=== PATIENT | female | born 2000 | race Caucasian/White ===

== ENCOUNTER 2019-03-20 14:59 | Emergency (ER) | payer BC ==
[2019-03-20] MEDS ORDERED: Lidocaine 2% VISCOUS* 15 ML UDC PO ONE (16:29)
--- NOTE | 2019-03-20 16:30 | ED ---
Influenza-Like Illness - HPI Summary HPI Summary: Patient complains of sore throat, low-grade fever up to 99.5, body aches, dry cough, nasal congestion 2 weeks. Denies a is SOB, N/V/D, abdominal pain, change, change in BM. Patient went to [facility] now convenient care today, was strep negative. Patient has been on complete Z-Henry and Augmentin 4 doses with no relief. Medical history is none. - History of Current Complaint Chief Complaint: EDFluSymptoms Time Seen by Provider: 03/20/19 16:09 Hx Obtained From: Patient, Family/Valuation Manager Onset/Duration: Gradual Onset, Lasting Weeks Severity: Moderate Associated Signs & Symptoms: Myalgia, Cough, Sore Throat, Nasal Congestion, Headache - Allergy/Home Medications Allergies/Adverse Reactions: Allergies Allergy/AdvReac Type Severity Reaction Status Date / Time No Known Allergies Allergy Verified 03/20/19 16:56 PMH/Surg Hx/FS Hx/Imm Hx Endocrine/Hematology History: Denies: Hx Anticoagulant Therapy Cardiovascular History: Denies: Hx Pacemaker/ICD History: Denies: Hx Dialysis Sensory History: Denies: Hx Legally Blind Opthamlomology History: Denies: Hx Eye Prosthesis EENT History: Denies: Hx Deafness Neurological History: Denies: Hx Dementia Psychiatric History: Denies: Hx Autism Infectious Disease History: No Infectious Disease History: Denies: Traveled Outside the [place] in Last 30 Days - Family History Known Family History: Positive: Non-Contributory - Social History Alcohol Use: Occasionally Hx Substance Use: No Hx Tobacco Use: No Review of Systems Constitutional: Negative Eyes: Negative Positive: Sore Throat, Nasal Discharge Cardiovascular: Negative Positive: Cough Gastrointestinal: Negative Genitourinary: Negative Positive: Myalgia Skin: Negative Positive: Headache Psychological: Normal All Other Systems Reviewed And Are Negative: Yes Physical Exam Triage Information Reviewed: Yes Vital Signs On Initial Exam: Initial Vitals Temp Pulse Resp BP Pulse Ox 99.5 F 125 18 135/97 100 03/20/19 15:13 03/20/19 15:13 03/20/19 15:13 03/20/19 15:13 03/20/19 15:13 Vital Signs Reviewed: Yes Appearance: Positive: Well-Appearing Skin: Positive: Warm Head/Face: Positive: Normal Head/Face Inspection Eyes: Positive: Normal ENT: Positive: Pharyngeal erythema, Nasal congestion, TMs normal, Tonsillar swelling - Mild swelling on the left, Uvula midline. Negative: Nasal drainage, Tonsillar exudate, Trismus, Muffled voice, Hoarse voice Neck: Positive: Supple Respiratory/Lung Sounds: Positive: Clear to Auscultation Cardiovascular: Positive: Normal Abdomen Description: Positive: Nontender Musculoskeletal: Positive: Normal Neurological: Positive: Normal Psychiatric: Positive: Normal AVPU Assessment: Alert - Meg Coma Scale Best Eye Response: 4 - Spontaneous Best Motor Response: 6 - Obeys Commands Best Verbal Response: 5 - Oriented Coma Scale Total: 15 Diagnostics - Vital Signs Vital Signs Temp Pulse Resp BP Pulse Ox 03/20/19 15:13 99.5 F 125 18 135/97 100 - Laboratory Result Diagrams: 03/20/19 16:25 03/20/19 16:25 Lab Statement: Any lab studies that have been ordered have been reviewed, and results considered in the medical decision making process. Flu Symptom Course/Dx - Course Course Of Treatment: Patient complains of sore throat, low-grade fever up to 99.5, body aches, dry cough, nasal congestion 2 weeks. Denies a is SOB, N/V/D , abdominal pain, change, change in BM. Patient went to well now convenient care today, was strep negative. Patient has been on complete Z-Henry and Augmentin 4 doses with no relief. Medical history is none. Vital signs within normal limits. Labs unremarkable. UA cultures pending. [place] negative. Flu negative. Chest x-ray unremarkable. Patient would not tolerate IV, unable to give fluids. Patient did not tolerate viscous lidocaine. Diagnosis viral syndrome. - Diagnoses Provider Diagnoses: Viral syndrome Discharge ED - Sign-Out/Discharge Documenting (check all that apply): Patient Departure Patient Received Moderate/Deep Sedation with Procedure: No - Discharge Plan Condition: Stable Disposition: HOME Patient Education Materials: Viral Syndrome (ED) Forms: *School Release Referrals: No Primary Care Phys,NOPCP [Primary Care Provider] - Additional Instructions: Drink plenty of fluids to maintain hydration. Rest. Alternate ibuprofen 400 mg with Tylenol 650 mg every 3 hours for fever, body aches and sore throat pain , as needed. Return to the ED for any new or worsening symptoms. - Billing Disposition and Condition Condition: STABLE Disposition: Home - Attestation Statements Provider Attestation: I was available for consult. This patient was seen by the M[facility]. The patient was not presented to, seen by, or examined by me. Garry Mccurdy MD
[2019-03-20 16:32] LABS: ABS Eosinophils 0.2 10^3/ul (0-0.6); ABS Lymphocytes 1.8 10^3/ul (1.0-4.8); ABS Monocytes 0.7 10^3/ul (0-0.8); Eosinophil % 2.6 %; Hematocrit 42 % (35-47); Hemoglobin 14.3 g/dL (12.0-16.0); Mean Corpuscular HGB Conc 34 g/dL (31-36); Mean Corpuscular Hemoglobin 31 pg (27-31); Mean Corpuscular Volume 91 fL (80-97); Mean Platelet Volume 7.3 fL (7.4-10.4); Nucleated Red Blood Cells % 0.1; Platelet Count 304 10^3/uL (150-450); Red Blood Count 4.66 10^6 /uL (3.70-4.87); Red Cell Distribution Width 12 % (10-15); White Blood Count 7.8 10^3/uL (3.5-10.8)
[2019-03-20 16:48] LABS: Albumin 4.4 g/dL (3.2-5.2); Albumin/Globulin Ratio 1.3 (1-3); BUN/Creatinine Ratio 8.5 (8-20); C Reactive Protein 74.79 mg/L (<8.01); Calcium 9.2 mg/dL (8.6-10.3); EGFR African American 128.3 (>60); Globulin 3.4 g/dL (2-4); Potassium 3.6 mmol/L (3.5-5.0); Total Bilirubin 0.3 mg/dL (0.2-1.0); Total Protein 7.8 g/dL (6.4-8.9)
[2019-03-20] MEDS ORDERED: Lidocaine 2% VISCOUS* 15 ML UDC ONE (17:07)
[2019-03-20 17:32] LABS: Influenza A Molecular NEGATIVE (Negative); Influenza B Molecular NEGATIVE (Negative)
[2019-03-20 17:42] LABS: Urine Appearance Cloudy; Urine Bacteria 3+ (Absent); Urine Bilirubin Negative (Negative); Urine Blood Negative (Negative); Urine Color Straw; Urine Glucose Negative (Negative); Urine Ketones Negative (Negative); Urine Nitrite Negative (Negative); Urine Protein Negative (Negative); Urine Red Blood Cell Trace(0-2/hpf) (Absent); Urine Specific Gravity 1.002 (1.010-1.030); Urine Squamous Epithelial Cell Present (Absent); Urine Urobilinogen Negative (Negative); Urine White Blood Cell Trace(0-5/hpf) (Absent)
[2019-03-20 18:08] VITALS: BP 113/97
[2019-03-22 17:55] LABS: Anaplasma phagocytophilum Negative (Negative); B. miyamotoi PCR, B Negative (Negative); Babesia divergens/MO-1 Negative (Negative); Babesia ducani Negative (Negative); Ehrlichia chaffeensis Negative (Negative); Ehrlichia ewingii/canis Negative (Negative); Ehrlichia muris eauclairensis Negative (Negative)
== END 2019-03-20 18:07 | disposition home or self-care (01) ==
LOC: ED 14:59
DX: B34.9 Viral infection, unspecified (principal); J02.9 Acute pharyngitis, unspecified; R05 Cough; R51 Headache
CPT/HCPCS: 36415; 71046; 80053; 81003; 81015; 85025; 86140; 86308; 87086; 87798; 99282